=== PATIENT | female | born 1990 | race Caucasian/White ===

== ENCOUNTER → 2019-08-22 13:57 | Outpatient (CLI) | payer SELFPAY ==
[2019-08-22 11:18] VITALS: BMI 27.9
[2019-08-22 16:34] LABS: Chlamydia Trachomatis by PCR Negative (Negative); Neisserai gonorrhoeae by PCR Negative (Negative); Probe Check PASS; Sample Adequacy Control PASS; Specimen Processing Control PASS
[2019-08-22 17:15] LABS: Absolute Lymphocyte Count 2.55 X10^3/uL (0.83-4.51); Absolute Neutrophil Count 4.3 X10^3/uL (2.0-7.7); Basophil# 0.02 X10^3/uL; Basophil% 0.3 % (0-1); Eosinophil# 0.09 X10^3/uL; Eosinophils% 1.2 % (0-5); Hematocrit 35.8 % (37-47); Hemoglobin 12.4 g/dL (12.0-15.0); Lymphocyte # 2.55 X10^3/ul (4.0); Lymphocyte % 33.8 % (19-41); Mean Corp Hgb Conc 34.6 g/dL (32-36); Mean Corpuscular Hgb 32.9 pg (27.0-32.0); Mean Platelet Vol. 10.1 fl (6.2-12.0); Monocyte# 0.61 X10^3/uL; Monocyte% 8.1 % (0-10); NRBC Flagged by Analyzer 0 % (0-5); Neutrophil # 4.27 X10^3/uL (2.7-7.7); Neutrophil % 56.5 % (47-70); Platelet Count 220 K/mm3 (150-450); RBC Distribution Width CV 10.9 % (11.6-14.6); RBC Distribution Width SD 38.2 fl (35.1-43.9); Red Blood Count 3.77 M/mm3 (4.2-5.4); White Blood Count 7.6 K/mm3 (4.4-11.0)
[2019-08-22 18:22] LABS: HIV - WCH Non-Reactive (Nonreactive); Rubella IgG 33.7 IU/mL
[2019-08-24 01:55] LABS: Rapid Plasmin Reagin (RPR) NONREACTIVE (NONREACTIVE)
[2019-08-27 17:40] LABS: HPV Reflexed? NOT INDICATED
== END ==
LOC: LABSPEC 13:58 → LAB 15:45
PROVIDERS: Family Provider Family Medicine; PCP Family Medicine; Referring Provider Nurse Practitioner Women's Health; Visit Provider Nurse Practitioner Women's Health
DX: Z34.90 Encounter for supervision of normal pregnancy, unspecified, unspecified trimester (principal); Z12.4 Encounter for screening for malignant neoplasm of cervix
CPT/HCPCS: 36415; 85025; 86592; 86703; 86762; 86850; 86900; 86901; 87086; 87088; 87491; 87591; 88175; G0145

== ENCOUNTER → 2019-10-09 11:45 | Outpatient (CLI) | payer MEDICAID, SELFPAY ==
[2019-10-09 11:14] VITALS: BMI 27.9
[2019-10-09 13:38] LABS: Hepatitis B Surface Antigen Non-Reactive (Nonreactive)
== END ==
PROVIDERS: Family Provider Family Medicine; PCP Family Medicine; Referring Provider Nurse Practitioner Women's Health; Visit Provider Nurse Practitioner Women's Health
DX: Z34.82 Encounter for supervision of other normal pregnancy, second trimester (principal)
CPT/HCPCS: 36415; 87340

== ENCOUNTER → 2020-01-04 11:08 | Outpatient (CLI) | payer OTHER, MEDICAID, SELFPAY ==
[2020-01-04 10:08] VITALS: BMI 27.9
[2020-01-04 11:22] LABS: Absolute Lymphocyte Count 1.97 X10^3/uL (0.83-4.51); Basophil# 0.02 X10^3/uL; Basophil% 0.2 % (0-1); Eosinophil# 0.04 X10^3/uL; Eosinophils% 0.4 % (0-5); Hematocrit 32.1 % (37-47); Hemoglobin 10.9 g/dL (12.0-15.0); Lymphocyte # 1.97 X10^3/ul (4.0); Lymphocyte % 20.3 % (19-41); Mean Corpuscular Hgb 32.3 pg (27.0-32.0); Mean Corpuscular Volume 95.3 fL (81-99); Mean Platelet Vol. 9.8 fl (6.2-12.0); Monocyte% 6.2 % (0-10); NRBC Flagged by Analyzer 0 % (0-5); Neutrophil # 7.03 X10^3/uL (2.7-7.7); Neutrophil % 72.4 % (47-70); Platelet Count 202 K/mm3 (150-450); RBC Distribution Width CV 11.7 % (11.6-14.6); RBC Distribution Width SD 40.2 fl (35.1-43.9); Red Blood Count 3.37 M/mm3 (4.2-5.4); White Blood Count 9.7 K/mm3 (4.4-11.0)
[2020-01-04 12:10] LABS: Glucose Challenge Gest 1H 50g 106 mg/dL (70-140)
== END ==
PROVIDERS: PCP Family Medicine; Referring Provider Obstetrics & Gynecology; Visit Provider Obstetrics & Gynecology
DX: O34.10 Maternal care for benign tumor of corpus uteri, unspecified trimester (principal); D25.9 Leiomyoma of uterus, unspecified; Z3A.00 Weeks of gestation of pregnancy not specified
CPT/HCPCS: 36415; 82950; 85025

== ENCOUNTER → 2020-02-13 11:17 | Outpatient (CLI) | payer OTHER, MEDICAID, SELFPAY ==
[2020-01-17 10:48] VITALS: BMI 27.9
[2020-02-13 10:35] VITALS: BMI 27.9
--- NOTE | 2020-02-13 11:20 | US_ITS ---
STUDY: SECOND AND THIRD TRIMESTER OBSTETRICAL ULTRASOUND REASON FOR EXAM: Female, 29 years old LOW LYING PLACENTA LMP: June 23, 2019 TECHNIQUE: Transabdominal and Transvaginal TECHNICAL QUALITY: Adequate. PRIOR ULTRASOUND: None. FINDINGS: There is a single intrauterine fetus. The fetus is in a breech presentation. There is demonstrated cardiac activity with a heart rate of 138 bpm. There is a normal amniotic fluid volume. The largest amniotic fluid pocket measures 3.6 cm. The amniotic fluid index (JESUS) is 9.6 cm. The placenta is posterior and fundal in location and is not low lying. There are Grade 2 placental changes. The cervix measures 4.4 cm in length. The adnexal regions are not visualized. There is evidence of a 4.4 cm x 3.6 cm x 2.1 cm fibroid along the anterior aspect of the mid uterus. BIOMETRY: BPD: 8.2 cm: 33 weeks, 0 days HC: 29.9 cm: 33 weeks, 1 days AC: 28.7 cm: 32 weeks, 5 days FL: 6.5 cm: 33 weeks, 4 days CI: 81% FL/BPD: 79% FL/HC: FL/AC: 23% HC/AC: 1.04 age by current US: 33 weeks, 1 days. JANAE by current US: April 01, 2020. Estimated weight: 2086 grams, +/- 305 grams, 25 %. Age by LMP: 33 weeks, 4 days. JANAE by LMP: March 29, 2020. US/OB Limited With Biometrics IMPRESSION: Single live uterine gestation with a mean gestational age of 33 weeks and 1 day. 4.4 cm x 3.6 x 2.1 cm fibroid is seen along the anterior midportion of the uterus. Electronically Signed: Tolu Warren, at 14:43 EDT , Service support ,
== END ==
PROVIDERS: PCP Family Medicine; Referring Provider Obstetrics & Gynecology; Visit Provider Obstetrics & Gynecology
DX: O44.42 Low lying placenta NOS or without hemorrhage, second trimester (principal); Z3A.00 Weeks of gestation of pregnancy not specified
CPT/HCPCS: 76816; 76817

== ENCOUNTER → 2020-03-07 13:26 | Outpatient (CLI) | payer OTHER, MEDICAID, SELFPAY ==
[2020-03-07 10:10] VITALS: BMI 27.9
[2020-03-07 15:56] LABS: Absolute Lymphocyte Count 2.16 X10^3/uL (0.83-4.51); Absolute Neutrophil Count 7.2 X10^3/uL (2.0-7.7); Basophil# 0.02 X10^3/uL; Basophil% 0.2 % (0-1); Eosinophil# 0.06 X10^3/uL; Eosinophils% 0.6 % (0-5); Hematocrit 32.3 % (37-47); Lymphocyte # 2.16 X10^3/ul (4.0); Lymphocyte % 21.2 % (19-41); Mean Corp Hgb Conc 34.1 g/dL (32-36); Mean Corpuscular Hgb 32.2 pg (27.0-32.0); Mean Corpuscular Volume 94.4 fL (81-99); Mean Platelet Vol. 11.2 fl (6.2-12.0); Monocyte# 0.77 X10^3/uL; Monocyte% 7.6 % (0-10); NRBC Flagged by Analyzer 0 % (0-5); Neutrophil # 7.15 X10^3/uL (2.7-7.7); Neutrophil % 70.1 % (47-70); Platelet Count 173 K/mm3 (150-450); RBC Distribution Width CV 11.9 % (11.6-14.6); RBC Distribution Width SD 40.1 fl (35.1-43.9); Red Blood Count 3.42 M/mm3 (4.2-5.4); White Blood Count 10.2 K/mm3 (4.4-11.0)
== END ==
LOC: LABSPEC 13:29 → LAB 15:27
PROVIDERS: PCP Family Medicine; Referring Provider Obstetrics & Gynecology; Visit Provider Obstetrics & Gynecology
DX: O99.013 Anemia complicating pregnancy, third trimester (principal); D64.9 Anemia, unspecified; Z3A.36 36 weeks gestation of pregnancy
CPT/HCPCS: 36415; 85025; 87077; 87081; 87186

== ENCOUNTER 2020-03-14 10:53 | Inpatient (IN) | payer OTHER, MEDICAID, SELFPAY ==
[2020-02-13 10:35] VITALS: BMI 27.9
[2020-03-07 10:10] VITALS: BMI 27.9
[2020-03-14] VITALS (18 sets, daily range): BP systolic 100–121; BP diastolic 41–68; PULSE 52–90; RESP 14–20; TEMP 36.2–36.6; O2SAT 97–100; BMI 33.7
--- NOTE | 2020-03-14 07:57 | US_ITS ---
STUDY: SECOND AND THIRD TRIMESTER OBSTETRICAL ULTRASOUND REASON FOR EXAM: Female, 30 years old growth- h/o of uterine fibroids LMP: June 23, 2019. TECHNIQUE: Transabdominal TECHNICAL QUALITY: Adequate. PRIOR ULTRASOUND: Comparison is made with prior study dated February 13, 2020. FINDINGS: There is a single intrauterine fetus. The fetus is in a breech presentation. There is demonstrated cardiac activity with a heart rate of 148 bpm. There is a normal amniotic fluid volume. The largest amniotic fluid pocket measures 2.0 cm. The amniotic fluid index (JESUS) is 6.1 cm. This corresponds to the 2 percentile. The placenta is posterior in location and is not low lying. There are Grade 2 placental changes. The cervix is not visualized.. The adnexal regions are not visualized. BIOMETRY: BPD: 8.8 cm: 35 weeks, 3 days HC: 32.6 cm: 36 weeks, 6 days AC: 31.5 cm: 35 weeks, 2 days FL: 7 cm: 35 weeks, 5 days CI: 79% FL/BPD: 79% FL/HC: FL/AC: 22% HC/AC: 1.03 age by current US: 35 weeks, 6 days. JANAE by current US: April 12, 2020. Estimated weight: 2741 grams, +/- 406 grams, 12 %. age by prior US: 37 weeks, 3 days. JANAE by prior US: April 01, 2020. Age by LMP: 37 weeks, 6 days. JANAE by LMP: March 29, 2020. US/OB Limited With Biometrics IMPRESSION: Single live intrauterine gestation with a mean gestational age of 37 weeks and 3 days. The measurements obtained today, follow within the lower normal expected range. This corresponds to the 12th percentile. The amniotic fluid index measures 6.1 cm corresponding to the 2nd percentile. Electronically Signed: Tolu Warren, at 9:03 EDT , Service support ,
--- NOTE | 2020-03-14 11:44 | HP.PCM_ITS ---
- Problem List (1) Oligohydramnios Status: Acute (2) Borderline anemia Status: Acute Comment: CBC at 36wks (3) Breech presentation Status: Acute Comment: plan primary (4) GBS (group B Streptococcus carrier), +RV culture, currently Status: Acute (5) Status: Acute Qualifiers: Comment: genetic-low risk, carrier screening and afp screening declined. anatomy reviewed. (6) Supervision of normal first Status: Acute Qualifiers: Comment: PRR JANAE 03/29/20 sudhir Martínez BF: Porfirio Mcintosh (7) Umbilical cord, marginal insertion Status: Acute Comment: Eccentric right edge (8) Uterine fibroids affecting Status: Acute Qualifiers: History and Physical Date of Admission: 03/14/20 Intake Vital Signs 03/14/20 BMI 27.9 03/14/20 Height 4 ft 11 in 03/14/20 Weight: 168 lb 03/14/20 BMI 33.9 03/14/20 BP 116/82 H Intake Visit Reasons: est ob 37w Chief Complaint: est ob Community Educator Required: No Is patient in pain?: No Allergies Penicillins Allergy (Mild, Verified 03/14/20 10:07) hives Medications docosahexaenoic acid 200 mg capsule mg PO cap 08/22/19 [History Confirmed 03/14/20] Last Menstral Period: 06/23/19 Zika: Zika virus screening: Negative : No PFSH PFSH Medical History Abnormal Pap smear of cervix (Acute) Family History Grandfather Diabetes Social History (Updated 03/14/20 @ 10:[address] 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 frank 6 cm this morning, upon repeat in office it is 4.6 cm with a double nuchal c ord and breech with particulate seen in the fluid also. OB Visit JANAE Calculator Estimated Delivery Date Method Current WG Current Estimate 03/29/20 LMP (Certain) 37w 6d Expected Delivery Route/Plan Labor Preferences- labor support person: porfirio pain management options preferred: minimal intervention, hydrtherapy, open to touch cut cord/dad catch: yes cord : yes PP control planned: discussed possible routes of delivery and associated risks: [] special requests: [] Specific Issue/Plans flu vaccine: given tdap vaccine: given rhogam: na LARC form signed: declined movement and labor precautions reviewed. Problem list reviewed and updated with the most current plan of care details and appropriate orders placed. Relevant counseling for the gestational age provided. Continue routine care and follow up unless otherwise noted in visit notes/problem list details Initial Weight: 135 lb Date EGA Weight BP Urine Prot Glucose FHR FuHt Pres Dilation Effaced St Visit Note 09/14/19 11w 6d 135 lb (+0 oz) 118/56 Negative Negative 165 10/09/19 15w 3d 140 lb 6 oz (+5 lb 6 oz) 110/58 Negative Negative 153 No vB, LOF. Plans NIPT today 11/05/19 19w 2d 143 lb (+8 lb) 90/60 Negative Negative 159 Doing well. Some FM. No VB, LOF. Anatomy US today 12/07/19 23w 6d Negative Negative 145 JANAE 06/05/20 girl ABNER Migel José Saravanan 01/04/20 27w 6d 154 lb (+19 lb) 98/60 Negative Negative 140 SM- no vb lof good fm no reg ctx SM- no vb lof good fm no reg ctxcbcgct tdap get fu us for placental location error in previous visit note from 12/07/19 SM- no vb lof good fm no reg ctxcbcgct tdap get fu us for placental location 01/17/20 29w 5d 157 lb (+22 lb) 102/66 Negative Negative 140 SM- no vb lof good fm no regular ctx 02/01/20 31w 6d 158 lb (+23 lb) 98/56 Negative Negative 140 SM- no vb lof good fm no regular ctx 02/13/20 33w 4d 163 lb (+28 lb) 100/64 Negative Negative 155 MH-No VB, LOF. Good FM. US today to recheck placenta. 03/07/20 36w 6d 164 lb (+29 lb) 102/64 150 34 Breech SM- no vb lof good fm no regular ctx, discusssed breech presentation, consider ECV, will schedule primary for now, patient to decide if she wants ECV 03/14/20 37w 6d 168 lb (+33 lb) 116/82 Negative Negative 150 34 Breech SM- to l and d for primary Notes Visit Date: 03/14/20 ??No visit notes to display Visit Date: 03/07/20 ??No visit notes to display Visit Date: 02/13/20 ??No visit notes to display Visit Date: 02/01/20 ??No visit notes to display Visit Date: 01/17/20 ??No visit notes to display Visit Date: 01/04/20 ??No visit notes to display Visit Date: 12/07/19 ??No visit notes to display Visit Date: 11/05/19 ??No visit notes to display Visit Date: 10/09/19 ??No vB, LOF. Plans NIPT today ??LUIS EDUARDO Nixon on 10/09/19 Visit Date: 09/14/19 ??No visit notes to display ACOG First Trimester First Trimester: Desire for , Alcohol, Tobacco Cessation, Illicit/Recreational Drug/Substance Use, Intimate Partner Violence, Barriers to care, Unstable Housing, Communication Barriers, Environmental/Work Hazards, Anticipated Course of Care, Toxoplasmosis Precations, Use of Any medications, Sexual activity, Exercise, Dental Care, Sauna/Hot tub use, Seat Belt use, Childbirth classes/Hospital facilities, , Travel, Indications for US and Screening for Aneuploidy Second Trimester Second Trimester: Signs and Symptoms of Labor, Selecting a care provider, Reproductive Life Planning, Care Planning, Tobacco Cessation, Depression/Anxiety and Intimate Partner Violence Third Trimester Third Trimester: Pain Management Plans, Labor support person(s), Immediate Larc, Movement Monitoring and Infant Feeding Yes ; discussed Trial of Labor after Counseling or discussed Circumcision preference Diagnostics Diagnostics Diagnostics Glucose 1 Hr 50 gm 106 mg/dL (70-140) 01/04/20 Hgb 11.0 g/dL (12.0-15.0) L 03/07/20 Hct 32.3 % (37-47) L 03/07/20 Details: HIV: Urine Culture: Sequential Screen: NIPT Screen: ROS Const Denies fever(s) Card Reports system reviewed and no additional complaints, except as docu Resp Reports system reviewed and no additional complaints, except as docu GI Reports as per HPI, Denies abdominal pain Reports as per HPI, Denies abnormal vaginal bleeding, Denies vaginal discharge Musc Reports system reviewed and no additional complaints, except as docu Exam Const General: healthy appearing, comfortable, no acute distress HENMT Head: normal to inspection Nose: external nose normal Face and sinus: normal facial exam Neck Neck: normal visual inspection, full ROM, no lymphadenopathy Thyroid: thyroid normal Chest Chest palpation & inspection: normal inspection of the chest Resp Effort & Inspection: normal respiratory effort GI Inspection: normal to inspection Palpation: soft, nontender Other: Cervical Exam: Extrem General: pedal edema Results POC Urinalysis 2 Dip (Clinic) Office Urine Glucose Negative Last Edit by Pearl Melendrez on 03/14/20 10:1 0 Office Urine Protein Negative Last Edit by Pearl Melendrez on 03/14/20 10:1 0 Assessment & Plan Problems 1. GBS (group B Streptococcus carrier), +RV culture, currently O99.820 2. Breech presentation O32.1XX0 3. Borderline anemia D64.9 4. Umbilical cord, marginal insertion 5. Leiomyoma of uterus affecting in third trimester O34.13 6. Encounter for supervision of normal first in first trimester Z34.01 7. 37 weeks gestation of Z3A.37 8. Oligohydramnios O41.00X0 Plan plan primary for delivery. oligo. Orders Orders: POC Urinalysis 2 Dip (Clinic) Today Coding Level of Care Code OB Routine Diagnoses GBS (group B Streptococcus carrier), +RV culture, currently O99.820 Breech presentation O32.1XX0 Borderline anemia D64.9 Umbilical cord, marginal insertion Leiomyoma of uterus affecting in third trimester O34.13 ??Trimester: third trimester Encounter for supervision of normal first in first trimester Z34.01 ??Trimester: first trimester 37 weeks gestation of Z3A.37 ??Weeks of gestation: 37 weeks Oligohydramnios O41.00X0
[2020-03-14 13:03] LABS: Absolute Neutrophil Count 6.3 X10^3/uL (2.0-7.7); Basophil# 0.02 X10^3/uL; Basophil% 0.2 % (0-1); Eosinophil# 0.05 X10^3/uL; Eosinophils% 0.6 % (0-5); Hematocrit 31.7 % (37-47); Hemoglobin 10.8 g/dL (12.0-15.0); Lymphocyte % 19.6 % (19-41); Mean Corp Hgb Conc 34.1 g/dL (32-36); Mean Corpuscular Volume 94.1 fL (81-99); Mean Platelet Vol. 11.5 fl (6.2-12.0); Monocyte% 6.9 % (0-10); NRBC Flagged by Analyzer 0 % (0-5); Neutrophil # 6.26 X10^3/uL (2.7-7.7); Neutrophil % 72.2 % (47-70); Platelet Count 173 K/mm3 (150-450); RBC Distribution Width CV 12.1 % (11.6-14.6); RBC Distribution Width SD 41.2 fl (35.1-43.9); Red Blood Count 3.37 M/mm3 (4.2-5.4); White Blood Count 8.7 K/mm3 (4.4-11.0)
[2020-03-14] MEDS: Lactated Ringers 1,000 ML 150 ML IV (13:09)
[2020-03-14] MEDS: Lactated Ringers 1,000 ML 999 ML IV (15:34)
[2020-03-14] MEDS: Sodium Citrate/Citric Acid 30 ML UDC PO (15:50)
--- NOTE | 2020-03-14 16:09 | OP.PCM_ITS ---
Problem List (1) Oligohydramnios Status: Acute (2) Borderline anemia Status: Acute Comment: CBC at 36wks (3) Breech presentation Status: Acute Comment: plan primary (4) GBS (group B Streptococcus carrier), +RV culture, currently Status: Acute (5) Status: Acute Qualifiers: Comment: genetic-low risk, carrier screening and afp screening declined. anatomy reviewed. (6) Supervision of normal first Status: Acute Qualifiers: Comment: PRR JANAE 03/29/20 sudhir Martínez BF: Porfirio Mcintosh (7) Umbilical cord, marginal insertion Status: Acute Comment: Eccentric right edge (8) Uterine fibroids affecting Status: Acute Qualifiers: Delivery Classification: Scheduled Final JANAE: 03/29/20 Gestational age: 37 Weeks and 6 Days sheet metal fabricator: Emeli Wadsworth Special Medications: none Implants Used: none Date of Procedure: 03/14/20 Pre-Operative Diagnosis: oligo breech Post-Operative Diagnosis: same plus uterine fibroids Indications: oligo RLTCS and myomectomy 5 cm Indications for : Breech Description of Procedure: The patient is a 30 yo @ 37 weeks with oligo and breech presentation presents for primary . Spinal anesthesia was placed without difficulty. Barbosa catheter was placed. The patient was placed in the dorsal supine position with leftward tilt. Patient was prepped and draped in the normal sterile fashion. Pfannenstiel skin incision was made with the scalpel and carried through to the underlying layer of fascia with the scalpel. Fascia was nicked in the midline and the incision extended laterally. The rectus bellies were dissected off superiorly and inferiorly with out complication both sharply and bluntly. The peritoneum was entered digitally. The incision was stretched and a low transverse uterine incision was made with the scalpel. The 'sbuttox and then body was delivered atraumatically followed by the anterior and posterior shoulders without complication the rest of the infant delivered. The cord was clamped and cut and the was handed off to awaiting nurse. The placenta was delivered spontaneously immediately following and was noted to be intact and have a three-vessel cord. The uterus was exteriorized cleared of all clots and debris, and the incision was closed in a double layer closure using #1 Monocryl. The ovaries and fallopian tubes were noted to be within normal limits. Several sub-serosal and one pedunculated fibroid were noted. The 5 x 4 cm pedunculated fibroid was noted anteriorly and this was transected across the base to perform a myomectomy and the area sutured with 2-0 Vicryl. The uterus was returned to the maternal abdomen and gutters were cleared of all clots and debris. The peritoneum was closed with 3-0 Monocryl in a running fashion. Gloves were changed prior to fascial closure. Fascia was closed with 0 PDS in a running fashion. Subcutaneous tissue was copiously irrigated and the skin was closed with 3-0 Monocryl in a subcuticular fashion. Mepilex dressing was applied without complication. Patient was taken to recovery in stable condition. It was discussed with the patient that based on the clinical information obtained during this encounter, combined with her history, at this time I would recommend vaginal or cesareans for future deliveries if further pregnancies are desired. Amniotic Membrane Rupture Type: Artificial Amniotic Fluid Description: Clear Placenta Disposition: [facility] Cord Entanglement: None Nuchal Cord Compression: With compression Cord Vessel Description: 3 Vessels Esitmated Blood Loss (ml): 600 Gender: Female Delayed cord clamping: Yes Antibiotic Given: Clindamycin 600mg IV x1 and Gentamicin 1.5mg/kg IV x1 Pt instructed on risks of surgery: Bleeding, Anesthesia Risks, Infection, Injury to surrounding structure(s) including bowel and bladder Complications: None - Admit VTE Documentation VTE Present on Admission: No VTE Mechan Device Prophylaxis: SCD's Multi Select Codes - Urinary/Genital Urinary/Genital CPT Codes: 86715 Myomectomy 1-4 intramural - pedunculated fibroi d, [address] Delivery [facility]
--- NOTE | 2020-03-14 17:46 | TISS_PTH ---
PATIENT: EDIE CORDOBA LOC: [facility] U#:[id number] AGE/SX: 30/F ROOM: WP010 RE03/14/[address]: Dr. Kath Art MD : 1990 BED: 1 DIS: 03/16/2020 SPEC #: [id number] RECD: 03/15/20 01:03 STATUS: AMRIT CRUZ #: [id number] ILANA: 03/14/20 17:[address]: Kath Art DEPT: SURGICAL PATHOLOGY RECD BY: Sylvie Herrera ENTERED: 03/17/20 08:44 SP TYPE: Tissue Bx SHERYL DR: Dr. Marko Quiroz MD Tissues: TISSUE SURGICALLY REMOVED Procedures: Surgery Specimen Level IV HEADER OPERATION: Myomectomy PRE-OP DIAGNOSIS: Fibroid TISSUE SUBMITTED: Tissue, fibroid MICROSCOPIC DIAGNOSIS Fibroid of myometrium, excision: Leiomyoma. AM:benito 5/5/20 MICROSCOPIC DESCRIPTION Slides are reviewed. GROSS DESCRIPTION Received in fixative is one container labeled with the patient's name and designated myomectomy fibroid. The specimen consists of a nodular piece of gardiner, indurated tissue measuring 5 x 3 x 2 cm and weighing 17 gm. Sections of this mass reveal gardiner whorled cut surfaces without areas of hemorrhage, necrosis or cystic degeneration. Guest Experience Manager sections are submitted in two cassettes. / HETAL:benito 03/17/20 TC:1 CPT: 60931
[2020-03-14] MEDS: Oxytocin 30 units/NS 500 ml 30 UNITS/500 ML IV.SOLN 167 UNITS IV (18:00)
[2020-03-14] MEDS: Lactated Ringers 1,000 ML 100 ML IV (21:43)
[2020-03-14] MEDS: Ketorolac 30 MG/ML Syringe IV (23:20)
[2020-03-15] VITALS (10 sets, daily range): BP systolic 96–114; BP diastolic 45–64; PULSE 71–100; RESP 14–18; TEMP 36.3–37.3; O2SAT 98–100
[2020-03-15 01:03] LABS: Pathology Specimen OB SEE PATHOLOGY REPORT
[2020-03-15] MEDS: 0.9% Saline Lock 10 ML Syringe IV ×5 (04:04→23:42)
[2020-03-15 04:25] LABS: Hematocrit 28.7 % (37-47); Hemoglobin 9.3 g/dL (12.0-15.0); Mean Corp Hgb Conc 32.4 g/dL (32-36); Mean Corpuscular Hgb 31.6 pg (27.0-32.0); Mean Corpuscular Volume 97.6 fL (81-99); Mean Platelet Vol. 10.7 fl (6.2-12.0); Platelet Count 147 K/mm3 (150-450); Red Blood Count 2.94 M/mm3 (4.2-5.4); White Blood Count 10.8 K/mm3 (4.4-11.0)
--- NOTE | 2020-03-15 05:11 | CPS ---
gave incentive spirometer to nurse.
[2020-03-15] MEDS: Ketorolac 30 MG/ML Syringe IV ×4 (05:26→23:42)
--- NOTE | 2020-03-15 10:11 | PCM.PN.OB ---
Patient Problems: Active and Suspected Problems (Last Reviewed 03/14/20 @ 10:07 by Pearl Melendrez) Oligohydramnios (Acute) Subjective: doing well no complaints pain controlled no CP SOB N V ambulating well tolerating po lochia moderate, going well - Physical Exam Vitals/I&O's: Vital Signs Temp Pulse Resp BP Pulse Ox 97.7 F L 73 15 103/53 L 98 03/15/20 03:36 03/15/20 06:35 03/15/20 06:35 03/15/20 03:36 03/15/20 06:35 Oxygen Delivery Method Room Air Weight: 167 lb Body Mass Index (BMI) 33.7 Intake and Output for Last 24 Hours 03/13/20 03/14/20 03/15/20 23:59 23:59 23:59 Intake Total 3396.125 / 3396.125 648.33 / 648.33 Output Total 950 / 950 1200 / 1200 Balance 2446.125 / 2446.125 -551.67 / -551.67 General: Alert, Oriented x3 Laboratory Results 03/14/20 12:45: WBC 8.7, RBC 3.37 L, Hgb 10.8 L, Hct 31.7 L, MCV 94.1, MCH 32.0, MCHC 34.1, RDW Std Deviation 41.2, RDW Coeff of Alexandro 12.1, Plt Count 173, MPV 11.5, Immature Gran % (Auto) 0.500, Neut % (Auto) 72.2 H, Lymph % (Auto) 19.6, [place] % (Auto) 6.9, Eos % (Auto) 0.6, Baso % (Auto) 0.2, Absolute Neuts (auto) 6.3, Absolute Lymphs (auto) 1.70, Nucleated RBC % 0 03/14/20 12:45: Blood Type A POSITIVE, Antibody Screen NEGATIVE 03/15/20 04:15: WBC 10.8, RBC 2.94 L, Hgb 9.3 L, Hct 28.7 L, MCV 97.6, MCH 31.6, MCHC 32.4, RDW Std Deviation 42.0, RDW Coeff of Alexandro 12.0, Plt Count 147 L, MPV 10.7 Current Medications Acetaminophen (Tylenol) 1,000 mg PO Q8H PRN PRN Reason: Pain Score 1-3/10 Bisacodyl (Dulcolax) 10 mg RECTAL UD PRN PRN Reason: If no BM Diphenhydramine HCl (Benadryl) 25 mg PO Q6H PRN PRN PRN Reason: ITCHING Stop: 03/15/20 19:40 Hydrocortisone (Hytone) 1 applic TOPICAL TID PRN PRN; Protocol PRN Reason: Discomfort Naloxone HCl 4 mg/ Dextrose 504 mls @ 0 mls/hr IV .Q0M PRN; Protocol PRN Reason: Respiratory depression Naloxone HCl 4 mg/ Dextrose 504 mls @ 0 mls/hr IV .Q0M PRN; Protocol PRN Reason: To maintain Resp. rate >10 Ketorolac Tromethamine (Toradol (Bkc)) 30 mg IV Q6H LACY Stop: 03/16/20 17:31 Last Admin: 03/15/20 05:26 Dose: 30 mg Documented by: Methylergonovine Maleate (Methergine) 0.2 mg IM X1 PRN PRN Reason: Uterine Atony Nalbuphine HCl (Nubain) 5 mg IV Q3H PRN PRN PRN Reason: ITCHING Stop: 03/15/20 19:40 Naloxone HCl (Narcan) 0.02 mg IV Q1M PRN PRN Reason: RR <10 and pt unresponsive Naproxen (Naprosyn) 250 - 500 mg PO Q8H PRN PRN PRN Reason: Pain Score 1-3/10 Ondansetron HCl (Zofran) 4 mg IV Q4H PRN PRN PRN Reason: Nausea Oxycodone HCl (Oxyir) 5 - 10 mg PO Q4H PRN PRN PRN Reason: Pain Score 4-10/10 Prochlorperazine Edisylate (Compazine Iv) 10 mg IV Q6H PRN PRN PRN Reason: NAUSEA Senna/Docusate Sodium (Senokot-S, Lis-Colace) 0 tablet PO DAILY PRN PRN Reason: Constipation Simethicone (Mylicon) 80 mg PO PCHS PRN PRN Reason: Indigestion/stomach pain Sodium Chloride () 5 - 15 ml IV UD PRN PRN Reason: SALINE FLUSH Last Admin: 03/15/20 05:27 Dose: 10 ml Documented by: Medical Necessity - Tobacco Use Smoking Status: Former smoker Assessment/Plan All Active Problems (Last Reviewed 03/14/20 @ 10:07 by Pearl Melendrez) Oligohydramnios (Acute) GBS (group B Streptococcus carrier), +RV culture, currently (Acute) Breech presentation (Acute) Borderline anemia (Acute) Umbilical cord, marginal insertion (Acute) Uterine fibroids affecting (Acute) Supervision of normal first (Acute) (Acute) Low lying placenta nos or without hemorrhage, second trimester (Resolved) s/p LTCS PPD # 1 1. routine post care 2. breast feeding- support given 3. rh positive 4. rubella immune
[2020-03-15] MEDS: Senna/Docusate Sodium 1 Tablet PO (17:13)
[2020-03-15] MEDS: Acetaminophen 500 MG Tablet 1000 MG PO (19:39)
[2020-03-16 02:20] VITALS: BP 107/62; PULSE 65; RESP 16; TEMP 36.5; O2SAT 98
[2020-03-16] MEDS: 0.9% Saline Lock 10 ML Syringe IV (06:20)
[2020-03-16] MEDS: Ketorolac 30 MG/ML Syringe IV ×2 (06:20→13:03)
--- NOTE | 2020-03-16 07:49 | PCM.PN.OB ---
Patient Problems: Active and Suspected Problems (Last Reviewed 03/14/20 @ 10:07 by Pearl Melendrez) Oligohydramnios (Acute) Subjective: doing well no complaints pain controlled no CP SOB N V ambulating well tolerating po lochia moderate, going well - Physical Exam Vitals/I&O's: Vital Signs Temp Pulse Resp BP Pulse Ox 97.7 F L 65 16 107/62 98 03/16/20 02:20 03/16/20 02:20 03/16/20 02:20 03/16/20 02:20 03/16/20 02:20 Oxygen Delivery Method Room Air Weight: 167 lb Body Mass Index (BMI) 33.7 Intake and Output for Last 24 Hours 03/14/20 03/15/20 03/16/20 23:59 23:59 23:59 Intake Total 3396.125 / 3396.125 648.33 / 648.33 Output Total 950 / 950 1400 / 1400 Balance 2446.125 / 2446.125 -751.67 / -751.67 General: Alert, Oriented x3 Current Medications Acetaminophen (Tylenol) 1,000 mg PO Q8H PRN PRN Reason: Pain Score 1-3/10 Last Admin: 03/15/20 19:39 Dose: 1,000 mg Documented by: Bisacodyl (Dulcolax) 10 mg RECTAL UD PRN PRN Reason: If no BM Hydrocortisone (Hytone) 1 applic TOPICAL TID PRN PRN; Protocol PRN Reason: Discomfort Naloxone HCl 4 mg/ Dextrose 504 mls @ 0 mls/hr IV .Q0M PRN; Protocol PRN Reason: Respiratory depression Naloxone HCl 4 mg/ Dextrose 504 mls @ 0 mls/hr IV .Q0M PRN; Protocol PRN Reason: To maintain Resp. rate >10 Ketorolac Tromethamine (Toradol (Bkc)) 30 mg IV Q6H LACY Stop: 03/16/20 17:31 Last Admin: 03/16/20 06:20 Dose: 30 mg Documented by: Methylergonovine Maleate (Methergine) 0.2 mg IM X1 PRN PRN Reason: Uterine Atony Naloxone HCl (Narcan) 0.02 mg IV Q1M PRN PRN Reason: RR <10 and pt unresponsive Naproxen (Naprosyn) 250 - 500 mg PO Q8H PRN PRN PRN Reason: Pain Score 1-3/10 Ondansetron HCl (Zofran) 4 mg IV Q4H PRN PRN PRN Reason: Nausea Oxycodone HCl (Oxyir) 5 - 10 mg PO Q4H PRN PRN PRN Reason: Pain Score 4-10/10 Prochlorperazine Edisylate (Compazine Iv) 10 mg IV Q6H PRN PRN PRN Reason: NAUSEA Senna/Docusate Sodium (Senokot-S, Lis-Colace) 0 tablet PO DAILY PRN PRN Reason: Constipation Last Admin: 03/15/20 17:13 Dose: 1 tablet Documented by: Simethicone (Mylicon) 80 mg PO PCHS PRN PRN Reason: Indigestion/stomach pain Sodium Chloride () 5 - 15 ml IV UD PRN PRN Reason: SALINE FLUSH Last Admin: 03/16/20 06:20 Dose: 10 ml Documented by: Medical Necessity - Tobacco Use Smoking Status: Former smoker Assessment/Plan All Active Problems (Last Reviewed 03/14/20 @ 10:07 by Pearl Melendrez) Oligohydramnios (Acute) GBS (group B Streptococcus carrier), +RV culture, currently (Acute) Breech presentation (Acute) Borderline anemia (Acute) Umbilical cord, marginal insertion (Acute) Uterine fibroids affecting (Acute) Supervision of normal first (Acute) (Acute) Low lying placenta nos or without hemorrhage, second trimester (Resolved) s/p LTCS PPD # 2 1. routine post care 2. breast feeding- support given 3. rh positive 4. rubella immune
--- NOTE | 2020-03-16 07:50 | DCINST_ITS ---
Discharge Diet: No Restrictions Discharge Activity: May Not Drive - for 2 weeks, May not drive while taking narcotic pain medications., May Shower, May Take a Tub Bath - in 7 days May resume sexual activity in: 4-6 weeks Lifting Restrictions: 20 pounds Additional Activity Instructions:: Nothing in the vagina for 4-6 weeks. You may return to work/school in 6 weeks. Call your doctor if your incision/area has: Continuous Slow Oozing, Sudden Increased Bleeding, Increased Pain/ Swelling, Increased Redness, Foul Smelling Discharge Call your doctor if you observe: Fever of 101 or Higher, Using more than one pad per hour - for 2 hours Suture Line Care: Avoid Pulling/Pushing, Avoid Pinching/Bending Cleanse incision/area with: Keep Dressing Clean & Dry Additional Instructions: If you experience any of the following, contact your healthcare provider. * Bleeding that soaks a pad every hour for 2 hours * Fever 100.4 or higher * Unrelieved incision or abdominal pain * Swelling, redness, discharge or bleeding from your incision or episiotomy site * Your incision begins to separate * Problems urinating (including inability to urinate or burning while urinating). * Visual changes * Severe headache * Flu-like symptoms * Pain or redness in one of both of your breasts * Pain, warmth, tenderness or swelling in your legs, especially the calf area * Frequent nausea and vomiting * Symptoms of depression or anxiety If you experience any of the following, call 911 or go to the nearest Emergency Room. * Chest pain * Problems breathing * Seizure activity * Partial or complete paralysis of a body part, slurred speech, weakness or drooping of the face, or a sudden inability to walk or hold your balance Allergies/Adverse Reactions: Allergies Penicillins Allergy (Mild, Verified 03/14/20 11:06) hives Medications to take at Discharge Doxylamine Succinate [Unisom] 25 mg PO 03/14/20 Pnv 29-1 Tablet 03/14/20 Naproxen [Naprosyn] 250 - 500 mg PO Q8H PRN PRN #30 tab 03/16/20 Oxycodone HCl/Acetaminophen [Percocet 5-325] 1 - 2 tablet PO Q6H PRN PRN 7 Days #15 tablet 03/16/20 The following prescriptions were given: Naproxen [Naprosyn] 250 - 500 mg PO Q8H PRN PRN #30 tab PRN Reason: MILD PAIN Transmission Status: Pending to [facility] Oxycodone HCl/Acetaminophen [Percocet 5-325] 1 - 2 tablet PO Q6H PRN PRN 7 Days #15 tablet PRN Reason: Pain Transmission Status: Sent to [facility] Follow-Up: Call to make an appointment with your doctor for an incision check in 1-2 weeks. You will also need a 6 week post- follow up appointment. Test results from this visit will be discussed in further detail at your follow- up appointment, if applicable. Please Follow Up With: Kath Art MD - Call to make an appointment for an incision check in 1-2 [phone] When: You will need a post- check in 6 weeks. Primary Care Physician: Marko Quiroz [Primary Care Provider] -
[2020-03-16 08:30] VITALS: BP 102/49; PULSE 81; RESP 16; TEMP 36.4; O2SAT 97
[2020-03-16 12:54] VITALS: BP 119/76; PULSE 72; RESP 16; TEMP 36.8
== END 2020-03-16 13:30 | disposition home or self-care (01) | DRG 787 ==
LOC: WP 10:58
PROVIDERS: Admitting Provider Obstetrics & Gynecology; PCP Family Medicine; Referring Provider Obstetrics & Gynecology; Visit Provider Obstetrics & Gynecology
PROC: 10D00Z1 Extraction of Products of Conception, Low, Open Approach (ICD-10-PCS; CPT 59514; principal; 2020-03-14 16:00)
DX: O32.1XX0 Maternal care for breech presentation, not applicable or unspecified (principal); O44.43 Low lying placenta NOS or without hemorrhage, third trimester; O41.03X0 Oligohydramnios, third trimester, not applicable or unspecified; O34.13 Maternal care for benign tumor of corpus uteri, third trimester; O99.824 Streptococcus B carrier state complicating childbirth; O69.1XX0 Labor and delivery complicated by cord around neck, with compression, not applicable or unspecified; D25.1 Intramural leiomyoma of uterus; Z3A.37 37 weeks gestation of pregnancy; Z37.0 Single live birth; Z87.891 Personal history of nicotine dependence
CPT/HCPCS: 59025; 59050; 76816; 85025; 85027; 86850; 86900; 86901; 88305; 99218; J7120; A4216; G0378; J2405

== ENCOUNTER 2020-03-18 13:58 | Day surgery (SDC) | payer OTHER, MEDICAID, SELFPAY ==
[2020-03-18 13:39] VITALS: BMI 33.7
== END 2020-03-18 16:56 | disposition home or self-care (01) ==
LOC: SDC 14:01 → ACINP 14:14
PROVIDERS: Anesthesiology; PCP Family Medicine; Referring Provider Nurse Practitioner Women's Health; Visit Provider Nurse Practitioner Women's Health
PROC: 3E0R3GC Introduction of Other Therapeutic Substance into Spinal Canal, Percutaneous Approach (ICD-10-PCS; CPT 62273; principal; 2020-03-18 14:00)
DX: O89.4 Spinal and epidural anesthesia-induced headache during the puerperium (principal)
CPT/HCPCS: 62273; J7120

== ENCOUNTER 2020-08-11 19:17 | Outpatient (RCR) | payer OTHER, MEDICAID, SELFPAY ==
[2020-05-01 14:57] VITALS: BMI 33.7
== END 2020-08-13 23:59 ==
LOC: EMPH 19:17
PROVIDERS: PCP Family Medicine; Visit Provider Family Medicine Geriatric Medicine
DX: Z11.59 Encounter for screening for other viral diseases (principal)
CPT/HCPCS: 87635; U0003